=== PATIENT | male | born 1980 | race Caucasian/White ===

== ENCOUNTER 2017-11-24 14:40 | Emergency (ER) | payer SELFPAY ==
[~2017-11-24] VITALS: Ht 185.4 cm; Wt 165.6 kg
[2017-11-24] MEDS ORDERED: CLINDAMYCIN PHOS 600 MG/ 4 ML VIAL IM ONE (15:30)
[2017-11-24] MEDS ORDERED: HYDROCODONE/APAP 10MG-325MG TAB PO ONE (15:30)
[2017-11-24] MEDS ORDERED: LIDOCAINE HCL 1% LOCAL INJ 20 ML VIAL INJ ONE (15:30)
[2017-11-24] MEDS ORDERED: TETANUS/DIPHTHERIA TOX ADULT 0.5 ML SYR IM ONE (17:00)
== END 2017-11-24 17:00 | disposition home or self-care (01) ==
LOC: ER 14:40
DX: L02.811 Cutaneous abscess of head [any part, except face] (principal); L03.811 Cellulitis of head [any part, except face]
CPT/HCPCS: 10060; 90471; 90714; 99283; J2001

== ENCOUNTER 2018-01-10 10:18 | Inpatient (IN) | payer SELFPAY ==
[~2018-01-10] VITALS: Ht 185.4 cm; Wt 163.7 kg
[2018-01-10] MEDS ORDERED: SODIUM CHLORIDE 0.9% 1000ML 1,000 ML IV STA (10:35)
[2018-01-10] MEDS ORDERED: IBUPROFEN 600 MG TAB PO STA (10:35)
[2018-01-10] MEDS ORDERED: ACETAMINOPHEN 325 MG TAB PO ONE (10:45)
[2018-01-10] MEDS ORDERED: CEFTRIAXONE SOD 1 GM VIAL IM ONE (10:45)
[2018-01-10] MEDS ORDERED: SODIUM CHLORIDE 0.9% 1000ML 1,000 ML IV SCH (11:30)
[2018-01-10 12:04] LABS: INR 1.13; PROTHROMBIN TIME 13.6 seconds (11.9-14.5)
[2018-01-10 12:12] LABS: ALANINE AMINOTRANSFERASE 39 IU/L (0-55); ALBUMIN 3.7 g/dL (3.5-5.0); ALBUMIN/GLOBULIN RATIO 1.1 (0.8-2.0); ALKALINE PHOSPHATASE 80 IU/L (40-150); ANION GAP 17.8 mmol/L (8-16); BLOOD UREA NITROGEN 13 mg/dL (7-26); BUN/CREATININE RATIO 16 (6-25); CALCIUM 9.3 mg/dL (8.4-10.2); CARBON DIOXIDE 22 mmol/L (22-29); CHLORIDE 99 mmol/L (98-107); CREATINE KINASE 113 IU/L (30-200); CREATININE, SERUM 0.81 mg/dL (0.72-1.25); EST GLOMERULAR FILTRATION RATE > 60 ML/MIN (60-); GLUCOSE 190 mg/dL (74-118); POTASSIUM 3.8 mmol/L (3.5-5.1); SODIUM 135 mmol/L (136-145)
--- NOTE | 2018-01-10 12:13 | Diagnostic Imaging Report ---
EXAMINATION: CHEST SINGLE (PORTABLE) COMPARISON: None FINDINGS: TUBES and LINES: None. LUNGS: Low lung volumes with mild patchy bibasilar opacity, likely atelectasis. No evidence of lobar pneumonia or pulmonary edema. PLEURA: No pleural effusion or pneumothorax. HEART AND MEDIASTINUM: The cardiomediastinal silhouette is unremarkable. BONES AND SOFT TISSUES: No acute osseous lesion. Soft tissues are unremarkable. UPPER ABDOMEN: No free air under the diaphragm. IMPRESSION: No acute radiographic abnormality. Signed by: Dr. Khurram Conklin MD on 01/10/2018 12:09 PM
[2018-01-10 12:15] LABS: CLARITY,URINE SL CLOUDY (CLEAR); COLOR,URINE YELLOW (YELLOW); LEUKOCYTE ESTERASE ,URINE 1+ (NEGATIVE); NITRITE,URINE POSITIVE (NEGATIVE); PROTEIN,URINE DIPSTICK 2+ (NEGATIVE)
[2018-01-10 12:16] LABS: BILIRUBIN,URINE NEGATIVE (NEGATIVE); KETONES,URINE TRACE (NEGATIVE); URINE UROBILINOGEN 0.2 mg/dL (0.2 - 1)
[2018-01-10 12:19] LABS: BACTERIA,URINE MANY /HPF; EPITHELIAL CELLS,URINE MODERATE /LPF; WBC,URINE (MAN) >50 /HPF (0-5)
[2018-01-10 12:21] LABS: BASOPHILS # (AUTO) 0.1 (0.0-0.1); BASOPHILS % 0.3 % (0.0-1.0); EOSINOPHILS % 0.2 % (0.0-6.0); HEMATOCRIT 39.7 % (38.2-49.6); HEMOGLOBIN 13.7 g/dL (14.0-18.0); LYMPHOCYTES # (AUTO) 1.3 (1.0-3.2); LYMPHOCYTES % 5.5 % (18.0-39.1); MEAN CORPUSCULAR HEMOGLOBIN 29.4 pg (28-32); MEAN CORPUSCULAR HGB CONC 34.5 g/dL (31-35); MEAN CORPUSCULAR VOLUME 85.2 fL (81-99); MONOCYTES # (AUTO) 1.5 (0.2-0.8); MONOCYTES % 6.3 % (4.4-11.3); NEUTROPHILS # (AUTO) 20.5 (2.1-6.9); NEUTROPHILS % 86.2 % (38.7-80.0); PLATELET COUNT 240 x10e3/uL (140-360); RED BLOOD COUNT 4.66 x10e6/uL (4.3-5.7); RED CELL DISTRIBUTION WIDTH 13.4 % (11.7-14.4)
[2018-01-10] MEDS ORDERED: VANCOMYCIN 1GM/NS 250 ML 250 ML IV STA (12:26)
--- NOTE | 2018-01-10 14:53 | Diagnostic Imaging Report ---
EXAM: CT of the abdomen and pelvis WITH contrast HISTORY: Abdominal pain, UTI, fatigue COMPARISON: None available. TECHNIQUE: The abdomen and pelvis were scanned utilizing a multidetector helical scanner. Coronal and sagittal reformats are provided. PROTOCOL: Routine IV CONTRAST: 100 cc of Isovue-370. ORAL CONTRAST: Water RADIATION DOSE: Total DLP: 1331.02 mGy*cm Estimated effective dose: (DLP x 0.015 x size factor) COMPLICATIONS: None FINDINGS: LOWER THORAX: Unremarkable. HEPATOBILIARY: Diffusely decreased attenuation of the liver. No focal hepatic lesions. No biliary ductal dilatation. The gallbladder is unremarkable. SPLEEN: No splenomegaly. PANCREAS: No focal masses or ductal dilatation. ADRENALS: No discrete adrenal nodule. KIDNEYS/URETERS: No hydronephrosis, stones, or solid mass lesions. No perfusion defects or perinephric fat stranding. PELVIC ORGANS/BLADDER: The urinary bladder appears unremarkable. The prostate is mildly enlarged, 6.2 cm (ML). PERITONEUM / RETROPERITONEUM: No free air or fluid. LYMPH NODES: Scattered nonspecific retroperitoneal and mesenteric lymph nodes, without pathologic enlargement. VESSELS: Punctate scattered atherosclerotic calcifications. GI TRACT: No distention or wall thickening identified. The appendix is normal. Scattered colonic diverticuli, without evidence of acute diverticulitis. The stomach is predominantly decompressed, which limits the evaluation. BONES: No aggressive osseous lesion or acute fracture. Multilevel degenerative changes of the axial skeleton, most notably severe hypertrophic facet arthrosis from L3-4 to L5-S1. SOFT TISSUES: Small fat-containing umbilical hernia. IMPRESSION: 1. No CT evidence of pyelonephritis. 2. Enlarged prostate. 3. Hepatic steatosis. 4. Colonic diverticulosis, without acute diverticulitis. 5. Small umbilical hernia, without associated inflammatory changes. Signed by: Dr. Neeraj James D.O., M.M.M. on 01/10/2018 2:49 PM
[2018-01-10] MEDS ORDERED: CLONIDINE HCL 0.2 MG TAB PO PRN (15:15)
[2018-01-10] MEDS ORDERED: ZOLPIDEM TARTRATE 10 MG TAB PO PRN (15:15)
[2018-01-10] MEDS ORDERED: DEXTROSE 50% SYRINGE 50 ML IV PRN (15:30)
--- NOTE | 2018-01-10 16:42 | History and Physical ---
REFERRING PHYSICIAN: Dr. Tom. CHIEF COMPLAINT: Dysuria and fever. HISTORY OF PRESENT ILLNESS: Patient is a 37-year-old man. He has a history of prior urinary tract infection several years ago. He now complains of dysuria and urgency for the past several days. He also had a temperature to 101. He does not report any flank pain. He denies any nausea or vomiting. Upon evaluation in the ER, he was found to have polyuria. CT scan of the abdomen and pelvis was negative except for enlarged prostate. His white blood cell count was elevated at 23 and his blood sugar was 190. PAST MEDICAL HISTORY 1. Hypertension. 2. Obstructive sleep apnea. 3. Recurrent urinary tract infection. PAST SURGICAL HISTORY: Noncontributory. ALLERGIES: NO KNOWN DRUG ALLERGIES. FAMILY HISTORY: Noncontributory. SOCIAL HISTORY: The patient is not a drinker or smoker. He does not have any history of drug use. REVIEW OF SYSTEMS: He does have fever. He did have headache. He does not have any sore throat. There is no dyspnea or cough. He has no chest pain. He has no nausea or vomiting. He does have some supraclavicular discomfort along with some dysuria. There are no focal neurological problems. PHYSICAL EXAMINATION VITAL SIGNS: Temperature was 101. His other vital signs are stable. HEENT: Shows no facial swelling or erythema. The nasal mucosa is normal. The oropharynx is normal. LYMPHATIC: Shows no submandibular, cervical, or supraclavicular adenopathy. CARDIOVASCULAR: Regular rate and rhythm with normal S1 and S2. No murmurs or rubs. RESPIRATORY: Auscultation of lungs reveals clear breath sounds bilaterally. There is no wheezing. ABDOMEN: Soft and nontender. There is no rebound or guarding. EXTREMITIES: Shows no leg edema or calf tenderness. There is no cyanosis or clubbing. SKIN: Shows no rashes. IMPRESSION 1. Urinary tract infection with sepsis. 2. Prostatic hypertrophy. 3. Hypertension. 4. Obstructive sleep apnea. 5. Hyperglycemia. 6. Hypokalemia. PLAN 1. Broad-spectrum antibiotics. 2. Panculture patient. 3. Urology consultation. 4. Continue CPAP. Continue antihypertensive regimen. Job#: [id number] VAS
[2018-01-10] MEDS: LOSARTAN POTASSIUM 100 MG TAB PO SCH (17:00)
[2018-01-10] MEDS: ACETAMINOPHEN 325 MG TAB PO PRN ×2 (17:12→23:45)
[2018-01-10 17:13] VITALS: BP 193/93
[2018-01-10 17:22] VITALS: BP 193/93
[2018-01-10] MEDS ORDERED: IOPAMIDOL 370 MG/ML 200 ML INFUS..BTL INJ ONE (20:32)
[2018-01-10] MEDS ORDERED: SODIUM CHLORIDE 0.9% 50ML 50 ML ONE (20:32)
[2018-01-10 21:02] VITALS: BP 161/74
[2018-01-10] MEDS: CEFTRIAXONE SOD 1 GM VIAL IV SCH (23:45)
[2018-01-11] VITALS (7 sets, daily range): BP systolic 147–187; BP diastolic 66–97
[2018-01-11 06:15] LABS: BASOPHILS # (AUTO) 0.1 (0.0-0.1); BASOPHILS % 0.3 % (0.0-1.0); EOSINOPHILS # (AUTO) 0.1 (0.0-0.4); EOSINOPHILS % 0.6 % (0.0-6.0); HEMATOCRIT 37.2 % (38.2-49.6); HEMOGLOBIN 12.5 g/dL (14.0-18.0); LYMPHOCYTES # (AUTO) 1.3 (1.0-3.2); LYMPHOCYTES % 6.3 % (18.0-39.1); MEAN CORPUSCULAR HEMOGLOBIN 29.4 pg (28-32); MEAN CORPUSCULAR HGB CONC 33.6 g/dL (31-35); MEAN CORPUSCULAR VOLUME 87.5 fL (81-99); MONOCYTES # (AUTO) 1.6 (0.2-0.8); NEUTROPHILS # (AUTO) 17.1 (2.1-6.9); PLATELET COUNT 210 x10e3/uL (140-360); RED BLOOD COUNT 4.25 x10e6/uL (4.3-5.7); RED CELL DISTRIBUTION WIDTH 13.9 % (11.7-14.4)
[2018-01-11 06:53] LABS: ALANINE AMINOTRANSFERASE 26 IU/L (0-55); ALBUMIN 3.1 g/dL (3.5-5.0); ALKALINE PHOSPHATASE 67 IU/L (40-150); ANION GAP 14.5 mmol/L (8-16); BLOOD UREA NITROGEN 12 mg/dL (7-26); BUN/CREATININE RATIO 16 (6-25); CALCIUM 9.3 mg/dL (8.4-10.2); CARBON DIOXIDE 24 mmol/L (22-29); CHLORIDE 102 mmol/L (98-107); CREATININE, SERUM 0.74 mg/dL (0.72-1.25); EST GLOMERULAR FILTRATION RATE > 60 ML/MIN (60-); GLUCOSE 186 mg/dL (74-118); POTASSIUM 3.5 mmol/L (3.5-5.1); SODIUM 137 mmol/L (136-145)
[2018-01-11 07:01] LABS: LYMPHOCYTES % (MANUAL) 7 % (19-48); MONOCYTES % (MANUAL) 7 % (3.4-9.0); NEUTROPHILS % (MANUAL) 85 % (40-74); PLATELET ESTIMATE ADEQUATE; PLATELET MORPHOLOGY COMMENT NORMAL; RBC MORPHOLOGY COMMENT NORMAL
[2018-01-11] MEDS ORDERED: LOSARTAN POTASSIUM 100 MG TAB PO SCH (09:00)
[2018-01-11] MEDS: LOSARTAN POTASSIUM 100 MG TAB PO SCH (09:06)
[2018-01-11] MEDS: ACETAMINOPHEN 325 MG TAB PO PRN ×2 (10:50→17:52)
[2018-01-11] MEDS: CEFTRIAXONE SOD 1 GM VIAL IV SCH (12:15)
[2018-01-11] MEDS: VANCOMYCIN 1GM/NS 250 ML 250 ML IV SCH (15:35)
[2018-01-11] MEDS: ONDANSETRON HCL INJ 2 MG/ML VIAL IV PRN ×2 (17:50→22:05)
[2018-01-11 19:30] LABS: BILIRUBIN,URINE NEGATIVE (NEGATIVE); CLARITY,URINE SL CLOUDY (CLEAR); COLOR,URINE YELLOW (YELLOW); KETONES,URINE NEGATIVE (NEGATIVE); LEUKOCYTE ESTERASE ,URINE NEGATIVE (NEGATIVE); NITRITE,URINE NEGATIVE (NEGATIVE); PROTEIN,URINE DIPSTICK 1+ (NEGATIVE); URINE UROBILINOGEN 0.2 mg/dL (0.2 - 1)
[2018-01-11 19:42] LABS: EPITHELIAL CELLS,URINE MODERATE /LPF
[2018-01-11] MEDS: TAMSULOSIN HCL 0.4 MG CAP PO SCH (21:20)
[2018-01-12] VITALS: BP 188/82
[2018-01-12] MEDS: CEFTRIAXONE SOD 1 GM VIAL IV SCH ×3 (00:15→23:37)
[2018-01-12] MEDS: ACETAMINOPHEN 325 MG TAB PO PRN ×3 (00:53→20:32)
[2018-01-12] MEDS ORDERED: SODIUM CHLORIDE 0.9% 250ML 250 ML ONE (03:06)
[2018-01-12] MEDS: VANCOMYCIN 1GM/NS 250 ML 250 ML IV SCH ×2 (03:09→15:31)
[2018-01-12 04:00] VITALS: BP 137/70
[2018-01-12 05:35] LABS: BASOPHILS # (AUTO) 0.1 (0.0-0.1); BASOPHILS % 0.6 % (0.0-1.0); EOSINOPHILS # (AUTO) 0.1 (0.0-0.4); EOSINOPHILS % 0.6 % (0.0-6.0); HEMATOCRIT 43.7 % (38.2-49.6); HEMOGLOBIN 14.4 g/dL (14.0-18.0); LYMPHOCYTES # (AUTO) 0.9 (1.0-3.2); LYMPHOCYTES % 10.9 % (18.0-39.1); MEAN CORPUSCULAR HEMOGLOBIN 29.2 pg (28-32); MEAN CORPUSCULAR VOLUME 88.6 fL (81-99); MONOCYTES # (AUTO) 0.6 (0.2-0.8); MONOCYTES % 7.2 % (4.4-11.3); NEUTROPHILS # (AUTO) 6.3 (2.1-6.9); NEUTROPHILS % 79.9 % (38.7-80.0); PLATELET COUNT 189 x10e3/uL (140-360); RED BLOOD COUNT 4.93 x10e6/uL (4.3-5.7); RED CELL DISTRIBUTION WIDTH 13.9 % (11.7-14.4)
[2018-01-12 05:58] LABS: ALANINE AMINOTRANSFERASE 39 IU/L (0-55); ALBUMIN 3.6 g/dL (3.5-5.0); ALBUMIN/GLOBULIN RATIO 0.9 (0.8-2.0); ALKALINE PHOSPHATASE 85 IU/L (40-150); BLOOD UREA NITROGEN 11 mg/dL (7-26); BUN/CREATININE RATIO 13 (6-25); CALCIUM 9.8 mg/dL (8.4-10.2); CARBON DIOXIDE 26 mmol/L (22-29); CHLORIDE 98 mmol/L (98-107); CREATININE, SERUM 0.86 mg/dL (0.72-1.25); EST GLOMERULAR FILTRATION RATE > 60 ML/MIN (60-); GLUCOSE 146 mg/dL (74-118); SODIUM 137 mmol/L (136-145)
[2018-01-12 08:00] VITALS: BP 133/76
[2018-01-12] MEDS ORDERED: GLIMEPIRIDE 2 MG TAB PO SCH (08:00)
[2018-01-12] MEDS: METFORMIN HCL 500 MG TAB PO SCH ×2 (08:10→16:23)
[2018-01-12] MEDS: LOSARTAN POTASSIUM 100 MG TAB PO SCH (08:10)
[2018-01-12] MEDS ORDERED: POTASSIUM CHLORIDE 20 MEQ TAB CR PO NR (08:15)
--- NOTE | 2018-01-12 08:37 | Progress Note ---
DATE: January 12, 2018 SUBJECTIVE: Patient still complains of some malaise. He had a temperature to 100.2 last night. PHYSICAL EXAMINATION: VITAL SIGNS: The patient is afebrile. The vital signs are stable. HEENT: Shows no facial swelling or edema. Examination of his mouth does show a dental abscess and some fractured teeth. CARDIAC: Reveals a regular rate and rhythm with a normal S1 and S2. CHEST: Auscultation of lungs reveals clear breath sounds bilaterally. ABDOMEN: Soft and not tender. There is no rebound, no guarding. EXTREMITIES: There is no leg edema. IMPRESSION: 1. Urinary tract infection with secondary sepsis. 2. Hyperglycemia with associated dehydration. 3. Hypertension. 4. Sleep apnea. 5. Dental disease. PLAN: 1. Patient will restart IV fluids. 2. Continue IV antibiotics. 3. Began Amaryl 2 mg a day as well as metformin 500 mg b.i.d. 4. Continue CPAP at night. 5. Monitor blood pressure. Job#: [id number] DR CASTILLO
[2018-01-12] MEDS: SODIUM CHLORIDE 0.9% 1000ML 1,000 ML IV SCH ×3 (11:37→23:37)
[2018-01-12 12:00] VITALS: BP 137/60
[2018-01-12] MEDS: HYDROCODONE/APAP 10MG-325MG TAB PO PRN ×2 (13:28→19:18)
[2018-01-12 16:00] VITALS: BP 143/69
[2018-01-12 20:00] VITALS: BP 168/75
[2018-01-12] MEDS: TAMSULOSIN HCL 0.4 MG CAP PO SCH (20:00)
[2018-01-13] VITALS (8 sets, daily range): BP systolic 136–178; BP diastolic 75–99
[2018-01-13] MEDS: VANCOMYCIN 1GM/NS 250 ML 250 ML IV SCH ×2 (03:35→20:00)
[2018-01-13] MEDS: ONDANSETRON HCL INJ 2 MG/ML VIAL IV PRN (04:39)
[2018-01-13] MEDS: ACETAMINOPHEN 325 MG TAB PO PRN ×3 (04:39→18:43)
[2018-01-13 05:55] LABS: BASOPHILS % 0.7 % (0.0-1.0); EOSINOPHILS # (AUTO) 0.1 (0.0-0.4); HEMATOCRIT 34.7 % (38.2-49.6); HEMOGLOBIN 11.7 g/dL (14.0-18.0); LYMPHOCYTES # (AUTO) 0.6 (1.0-3.2); LYMPHOCYTES % 10.3 % (18.0-39.1); MEAN CORPUSCULAR HEMOGLOBIN 29.1 pg (28-32); MEAN CORPUSCULAR HGB CONC 33.7 g/dL (31-35); MEAN CORPUSCULAR VOLUME 86.3 fL (81-99); MONOCYTES # (AUTO) 0.9 (0.2-0.8); MONOCYTES % 15.5 % (4.4-11.3); NEUTROPHILS # (AUTO) 4.3 (2.1-6.9); NEUTROPHILS % 71.8 % (38.7-80.0); PLATELET COUNT 188 x10e3/uL (140-360); RED BLOOD COUNT 4.02 x10e6/uL (4.3-5.7); RED CELL DISTRIBUTION WIDTH 13.7 % (11.7-14.4)
[2018-01-13 06:09] LABS: ALANINE AMINOTRANSFERASE 58 IU/L (0-55); ALBUMIN 2.9 g/dL (3.5-5.0); ALBUMIN/GLOBULIN RATIO 0.9 (0.8-2.0); ALKALINE PHOSPHATASE 64 IU/L (40-150); ANION GAP 12.7 mmol/L (8-16); BLOOD UREA NITROGEN 10 mg/dL (7-26); BUN/CREATININE RATIO 13 (6-25); CALCIUM 8.8 mg/dL (8.4-10.2); CARBON DIOXIDE 25 mmol/L (22-29); CHLORIDE 99 mmol/L (98-107); CREATININE, SERUM 0.77 mg/dL (0.72-1.25); EST GLOMERULAR FILTRATION RATE > 60 ML/MIN (60-); GLUCOSE 162 mg/dL (74-118); MAGNESIUM 1.7 MG/DL (1.3-2.1); POTASSIUM 3.7 mmol/L (3.5-5.1); SODIUM 133 mmol/L (136-145)
[2018-01-13] MEDS: HYDROCODONE/APAP 10MG-325MG TAB PO PRN ×3 (06:19→21:43)
[2018-01-13] MEDS: SODIUM CHLORIDE 0.9% 1000ML 1,000 ML IV SCH ×2 (08:11→16:00)
[2018-01-13] MEDS: METFORMIN HCL 500 MG TAB PO SCH ×2 (08:11→17:04)
[2018-01-13] MEDS ORDERED: GLIMEPIRIDE 2 MG TAB PO ONE (08:30)
[2018-01-13] MEDS: AMLODIPINE BESYLATE 10 MG TAB PO SCH (09:09)
[2018-01-13] MEDS: LOSARTAN POTASSIUM 100 MG TAB PO SCH (09:09)
[2018-01-13] MEDS: CEFTRIAXONE SOD 1 GM VIAL IV SCH (12:45)
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
--- NOTE | 2018-01-13 19:39 | Diagnostic Imaging Report ---
EXAMINATION: CHEST XRAY LINE PLACEMENT INDICATION: \S\PICC PLACEMENT COMPARISON: 01/10/2018 FINDINGS: AP view TUBES and LINES: Right PICC in place with tip overlying mid to inferior SVC. LUNGS: Limited by body habitus. Pulmonary vascular congestion and mild interstitial edema. Underlying infiltrate in the perihilar regions cannot be excluded. PLEURA: No significant pleural effusion or pneumothorax. HEART AND MEDIASTINUM: The cardiomediastinal silhouette is unremarkable. BONES AND SOFT TISSUES: No acute osseous lesion. Soft tissues are unremarkable. UPPER ABDOMEN: No free air under the diaphragm. IMPRESSION: Limited study due to body habitus. Right PICC in place with tip overlying mid SVC. No visible pneumothorax. Pulmonary vascular congestion and mild interstitial edema. Underlying infiltrate in the perihilar regions cannot be excluded. Signed by: Dr. Gonzales Maldonado MD on 01/13/2018 7:35 PM
[2018-01-13] MEDS: TAMSULOSIN HCL 0.4 MG CAP PO SCH (21:42)
--- NOTE | 2018-01-13 22:39 | Diagnostic Imaging Report ---
EXAMINATION: Head CT without contrast. HISTORY:Headache. COMPARISON:None. TECHNIQUE: Multidetector axial images were obtained from the foramen magnum to the vertex without contrast. The images were reconstructed using brain and bone algorithms. Thin section brain images were reformatted into coronal and sagittal planes. Dose modulation, iterative reconstruction, and/or weight based adjustment of the mA/kV was utilized to reduce the radiation dose to as low as reasonably achievable. Intravenous contrast: None IMAGE QUALITY: Acceptable. FINDINGS: Skull/scalp: Nonspecific multiple punctate subcutaneous and superficial radiopaque densities in bilateral parietal scalp may represent debris or calcifications. No acute abnormality. No lytic or blastic lesions. Parenchyma: No abnormal density. No acute hemorrhage, mass or acute major vascular territorial infarct. Arteries: No density suggestive of thrombosis. Dural sinuses: No abnormal density suggestive of thrombosis. Ventricles: No hydrocephalus or displacement. Extra-axial spaces: No abnormal density. Brain volume: Normal for age. Craniocervical junction: No mass, Chiari malformation, or basilar invagination. Sella: No mass. Paranasal/mastoid sinuses: Mild mucosal thickening in left maxillary sinus. IMPRESSION: No acute intracranial abnormality. Signed by: Dr. Lisa Brown M.D. on 01/13/2018 10:35 PM
--- NOTE | 2018-01-13 23:02 | Diagnostic Imaging Report ---
History: Fever, dental abscess. Comparison studies: None Technique: Axial, coronal and sagittal images from the skull base to the thoracic inlet. Coronal and sagittal images reconstructed from the axial data. Intravenous contrast: 100 cc of Isovue 370. Findings: Soft tissues: No abnormalities. Masses: None. Lymph nodes: No radiographically significant adenopathy. Vessels: Arteries and veins are patent. Glands (thyroid, parotid and submandibular): Normal in size and symmetric. No masses. Orbits: No abnormalities. Paranasal sinuses: Mild mucosal thickening in left maxillary sinus with a small polyp/retention cyst in bilateral maxillary sinuses. Temporal bones: No abnormalities. Skull base and facial bones: Intact. 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 Mild degenerative disc disease. C5-C6: Mild left foraminal stenosis due to facet and uncovertebral arthrosis. C7-T1: Severe left foraminal stenosis due to facet and uncovertebral arthrosis. Incidental finding: Multifocal dental caries and endodontal disease, the activity of which is to be determined clinically. No discrete soft tissue abscess. Airspace opacities in the dependent portion of bilateral upper lobe (right worse than left may represent consolidation. Multiple groundglass nodular airspace opacities in bilateral lung apices. IMPRESSION: 1. Multifocal dental caries and endodontal disease, the activity of which is to be due to mild clinically. No discrete soft tissue abscess. 2. Airspace opacities and multiple groundglass nodules in bilateral upper lobe, possibly represents underlying infectious/inflammatory process in appropriate clinical setting. Signed by: Dr. Lisa Brown M.D. on 01/13/2018 10:58 PM
[2018-01-14] VITALS (9 sets, daily range): BP systolic 145–167; BP diastolic 67–91
[2018-01-14] MEDS: CEFTRIAXONE SOD 1 GM VIAL IV SCH ×2 (01:10→15:35)
[2018-01-14] MEDS: SODIUM CHLORIDE 0.9% 1000ML 1,000 ML IV SCH (03:59)
[2018-01-14 05:06] LABS: BASOPHILS # (AUTO) 0.1 (0.0-0.1); BASOPHILS % 0.8 % (0.0-1.0); EOSINOPHILS # (AUTO) 0.1 (0.0-0.4); EOSINOPHILS % 1.7 % (0.0-6.0); HEMATOCRIT 33.5 % (38.2-49.6); HEMOGLOBIN 11.2 g/dL (14.0-18.0); LYMPHOCYTES # (AUTO) 1.2 (1.0-3.2); LYMPHOCYTES % 19.5 % (18.0-39.1); MEAN CORPUSCULAR HEMOGLOBIN 29.3 pg (28-32); MEAN CORPUSCULAR HGB CONC 33.4 g/dL (31-35); MEAN CORPUSCULAR VOLUME 87.7 fL (81-99); MONOCYTES # (AUTO) 1.1 (0.2-0.8); MONOCYTES % 18.2 % (4.4-11.3); NEUTROPHILS # (AUTO) 3.6 (2.1-6.9); NEUTROPHILS % 59.3 % (38.7-80.0); PLATELET COUNT 176 x10e3/uL (140-360); RED BLOOD COUNT 3.82 x10e6/uL (4.3-5.7)
[2018-01-14 05:23] LABS: ALANINE AMINOTRANSFERASE 64 IU/L (0-55); ALBUMIN 2.8 g/dL (3.5-5.0); ALBUMIN/GLOBULIN RATIO 0.8 (0.8-2.0); ALKALINE PHOSPHATASE 58 IU/L (40-150); ANION GAP 14.7 mmol/L (8-16); BLOOD UREA NITROGEN 9 mg/dL (7-26); BUN/CREATININE RATIO 12 (6-25); CARBON DIOXIDE 25 mmol/L (22-29); CHLORIDE 101 mmol/L (98-107); CREATININE, SERUM 0.73 mg/dL (0.72-1.25); EST GLOMERULAR FILTRATION RATE > 60 ML/MIN (60-); GLUCOSE 143 mg/dL (74-118); POTASSIUM 3.7 mmol/L (3.5-5.1); SODIUM 137 mmol/L (136-145)
[2018-01-14] MEDS: GLIMEPIRIDE 2 MG TAB PO SCH (08:07)
[2018-01-14] MEDS: METFORMIN HCL 500 MG TAB PO SCH ×2 (08:07→17:52)
[2018-01-14] MEDS: AMLODIPINE BESYLATE 10 MG TAB PO SCH (08:07)
[2018-01-14] MEDS: LOSARTAN POTASSIUM 100 MG TAB PO SCH (08:07)
[2018-01-14] MEDS: VANCOMYCIN 1GM/NS 250 ML 250 ML IV SCH ×2 (08:36→20:56)
--- NOTE | 2018-01-14 13:35 | Diagnostic Imaging Report ---
EXAMINATION: CT scan of the chest without contrast. TECHNIQUE: Helical CT images of the chest were performed from the lung apices to the level of the adrenal glands. No intravenous contrast was administered Coronal and sagittal reformatted images were obtained.Dose modulation, iterative reconstruction, and/or weight based adjustment of the mA/kV was utilized to reduce the radiation dose to as low as reasonably achievable. COMPARISON: None. CLINICAL HISTORY:Fever, elevated white blood count DISCUSSION: ABSENCE OF INTRAVENOUS CONTRAST DECREASES SENSITIVITY FOR DETECTION OF FOCAL LESIONS AND VASCULAR PATHOLOGY. LINES/TUBES: None. LUNGS AND AIRWAYS: Multifocal bilateral nodular and right upper lobe confluent consolidative process. PLEURA: No pneumothorax or pleural effusions. HEART AND MEDIASTINUM: The thyroid gland is normal. The heart and pericardium are within normal limits. LYMPH NODES: There is no mediastinal, hilar or axillary lymphadenopathy. ABDOMEN: Limited contrast-enhanced views of the upper abdomen show no abnormality within the visualized liver, spleen, pancreas, or kidneys. The adrenal glands are normal. BONES AND SOFT TISSUES: No acute bony abnormalities. IMPRESSION: Multifocal pneumonia Signed by: Dr. Kalpesh Thorpe M.D. on 01/14/2018 1:33 PM
[2018-01-14] MEDS ORDERED: AZITHROMYCIN 500MG/NS 250 ML 250 ML IV SCH (14:45)
--- NOTE | 2018-01-14 16:18 | Progress Note ---
DATE: The patient had a CT scan of the neck soft tissue yesterday that showed some dental disease, but no abscesses in the soft tissue. The apices of the lungs did show some inflammatory changes. A CT scan of the chest today shows inflammatory changes in the upper lobes bilaterally as well as the superior segments of the lower lobes consistent with pneumonia. PHYSICAL EXAMINATION VITAL SIGNS: The temperature was 100.5. The vital signs are stable. HEENT: He does have some dental disease. LYMPHATIC: No submandibular, cervical or supraclavicular adenopathy. CARDIAC: Regular rate and rhythm with normal S1 and S2. There are no murmurs or rubs. CHEST: Auscultation of the lungs reveals clear breath sounds bilaterally. ABDOMEN: Soft and nontender. There is no rebound or guarding. EXTREMITIES: There is no leg edema or calf tenderness. IMPRESSION 1. Community-acquired pneumonia. 2. Urinary tract infection with sepsis. 3. Hypertension. 4. Diabetes. 5. Prostatic hypertrophy. PLAN 1. Continue antibiotics. 2. If the patient is afebrile and doing well tomorrow, we will consider discharge on oral antibiotics. 3. Patient will need blood pressure medicines at home as well as metformin and Amaryl. Job#: [id number]
[2018-01-14] MEDS ORDERED: SODIUM CHLORIDE 0.9% 250ML 250 ML ONE (20:57)
[2018-01-14] MEDS: TAMSULOSIN HCL 0.4 MG CAP PO SCH (21:26)
[2018-01-15] MEDS: CEFTRIAXONE SOD 1 GM VIAL IV SCH (01:35)
[2018-01-15 04:00] VITALS: BP 156/83
[2018-01-15 08:25] VITALS: BP 141/87
[2018-01-15] MEDS: GLIMEPIRIDE 2 MG TAB PO SCH (08:25)
[2018-01-15] MEDS: VANCOMYCIN 1GM/NS 250 ML 250 ML IV SCH (08:25)
[2018-01-15] MEDS: METFORMIN HCL 500 MG TAB PO SCH (08:26)
[2018-01-15] MEDS: LOSARTAN POTASSIUM 100 MG TAB PO SCH (08:26)
[2018-01-15] MEDS: AMLODIPINE BESYLATE 10 MG TAB PO SCH (08:26)
[2018-01-15] MEDS ORDERED: LEVAQUIN500 MG PO (10:51)
[2018-01-15] MEDS ORDERED: METFORMIN HCL500 MG PO (10:52)
[2018-01-15] MEDS ORDERED: LOSARTAN POTAS100 MG PO (10:52)
[2018-01-15] MEDS ORDERED: FLOMAX0.4 MG PO (10:52)
[2018-01-15] MEDS ORDERED: AMARYL2 MG PO (10:53)
--- NOTE | 2018-01-15 11:34 | Discharge Summary ---
DISCHARGE DIAGNOSES 1. Community-acquired pneumonia. 2. Urinary tract infection with sepsis. 3. Diabetes. 4. Hypertension. 5. Prostatic hypertrophy. 6. Obstructive sleep apnea. CONSULTING PHYSICIANS 1. Dr. Jarrett of infectious disease. 2. Dr. Guerrero of urology. RADIOGRAPHIC DATA 1. CT scan of the soft tissue neck showed multifocal dental disease and endodontal disease. There are no soft-tissue abscesses. 2. CT scan of the chest shows multifocal pneumonia. 3. CT scan of the brain shows no active disease. HISTORY OF PRESENT ILLNESS: The patient is a 37-year-old man with a history of a prior urinary tract infection and hypertension. He also has a history of sleep apnea. He came in complaining of dysuria and fevers. He noted a headache. He had some nausea. HOSPITAL COURSE: The patient was admitted. He was noted to have pyuria, and he was started on antibiotics. A CT scan of the abdomen and pelvis showed prostatic hypertrophy but no other disease. He was started on Flomax and seen by urology. The patient improved initially. His white blood cell count improved with antibiotics, but then he developed worsening fever and headaches. Subsequent evaluation showed negative cultures, but new chest x-ray and CT findings consistent with pneumonia. The patient's had elevated blood sugars during the hospitalization. He was started on Amaryl as well as metformin, and his blood sugars improved. He also had elevated blood pressure and required treatment with Losartan and Norvasc. He continued to receive CPAP throughout the hospitalization. At the time of discharge, he felt much better and was eager to go home. DISPOSITION: The patient will be discharged home. He does have a local family doctor to follow up with in 1 week. BASHIR ORLANDO MD Job#: [id number]
== END 2018-01-15 11:13 | disposition home or self-care (01) | DRG 871 ==
LOC: ER 10:18 → ERHOLD 15:29 → MED/SURG2 16:40
PROVIDERS: ADMIT Internal Medicine Critical Care Medicine; ATTEND Internal Medicine Critical Care Medicine
PROC: 02HV33Z Insertion of Infusion Device into Superior Vena Cava, Percutaneous Approach (ICD-10-PCS; principal; 2018-01-10)
DX: A41.9 Sepsis, unspecified organism (principal); R65.21 Severe sepsis with septic shock; J18.9 Pneumonia, unspecified organism; N30.01 Acute cystitis with hematuria; N40.0 Benign prostatic hyperplasia without lower urinary tract symptoms; G47.33 Obstructive sleep apnea (adult) (pediatric); I10 Essential (primary) hypertension; E11.65 Type 2 diabetes mellitus with hyperglycemia; I50.9 Heart failure, unspecified; E87.6 Hypokalemia; K02.9 Dental caries, unspecified
CPT/HCPCS: 36415; 36569; 70450; 70491; 71045; 71250; 74177; 80053; 81001; 82550; 82553; 82948; 83605; 83735; 84484; 85025; 85610; 86757; 86789; 87040; 87086; 87449; 94660; 99284; J0456; J0696; J2405; J3370; J7030; J7050; Q9967